=== PATIENT | female | born 1970 | race Caucasian/White ===

== ENCOUNTER → 2016-06-26 | Outpatient (CLI) | payer BC ==
--- NOTE | 2016-06-27 07:41 | MM ---
Reason for exam: follow-up at short interval from prior study. Last mammogram was performed 5 months ago. History: Family history of breast cancer in paternal aunt at age 50. Physical Findings: Nurse did not find any significant physical abnormalities on exam. MG 3D Diag Mammo W/Cad RT CC and MLO view(s) were taken of the right breast. Prior study comparison: January 26, 2016, bilateral MG screening mammo w CAD. January 18, 2015, bilateral MG screening mammo w CAD. The breast tissue is extremely dense which could obscure a lesion on mammography. There is chronic nodularity in the right breast. This finding is changed when compared with previous exams. These results were verbally communicated with the patient and result sheet given to the patient on 06/26/16. ASSESSMENT: Incomplete: need additional imaging evaluation, BI-RAD 0 RECOMMENDATION: Ultrasound of the right breast. Manage patient on a clinical basis.
--- NOTE | 2016-06-27 07:47 | USB ---
Reason for exam: follow-up at short interval from prior study. History: Family history of breast cancer in paternal aunt at age 50. US Breast RT Right breast ultrasound including all four quadrants, the retroareolar region and axilla demonstrates several cystic lesions measuring 1.8 x 1.3 x 0.7cm at 1 o'clock, 0.7 x 0.8 x 0.4cm at 4 o'clock, 0.5 x 0.5 x 0.3cm at 5 o'clock, 0.3 x 0.4 x 0.2cm at 7 o'clock, 0.4 x 0.4 x 0.2cm at 8 o'clock and 2.7 x 2.1 x 1.4cm at 10 o'clock. These results were verbally communicated with the patient and result sheet given to the patient on 06/26/16. ASSESSMENT: Probably benign, BI-RAD 3 RECOMMENDATION: Ultrasound of the right breast in 7 months. Follow-up diagnostic mammogram of both breasts in 7 months.
== END | disposition home or self-care (01) ==
LOC: RADMAMWWP 15:38
PROVIDERS: ATTEND Obstetrics & Gynecology
DX: R92.8 Other abnormal and inconclusive findings on diagnostic imaging of breast (principal)
CPT/HCPCS: 76641; G0206; G0279

== ENCOUNTER → 2017-03-01 | Outpatient (CLI) | payer BC ==
--- NOTE | 2017-03-01 10:55 | MM ---
Reason for exam: follow-up at short interval from prior study. Last mammogram was performed 8 months ago. History: Family history of breast cancer in paternal aunt at age 50. Physical Findings: Nurse Summary: 1cm nodule in the right breast at 12 o'clock and 5 o'clock (nurse mj). MG 3D Diag Mammo W/Cad RUTH Bilateral CC and MLO view(s) were taken. Prior study comparison: June 26, 2016, right breast MG 3d diag mammo w/cad RT. January 26, 2016, bilateral MG screening mammo w CAD. The breast tissue is heterogeneously dense. This may lower the sensitivity of mammography. There are benign appearing wasing and waing masses most compatible with benign cysts. These results were verbally communicated with the patient and result sheet given to the patient on 03/01/17. ASSESSMENT: Benign, BI-RAD 2 RECOMMENDATION: Routine screening mammogram of both breasts in 1 year. (ultrasound of the right breast will be done as follow up and for palpables)
--- NOTE | 2017-03-01 11:01 | USB ---
Reason for exam: follow-up at short interval from prior study. History: Family history of breast cancer in paternal aunt at age 50. US Breast RT Right breast ultrasound includes all four quadrants, the retroareolar region and axilla. Finding demonstrates a 0.6 x 0.4 x 0.6cm cystic lesion at 2 o'clock, a 0.4 x 0.3 x 0.3cm lesion too small to characterize at 5 o'clock cluster appears benign, a 0.6 x 0.4 x 0.6cm mixed lesion at 9 o'clock for which a biopsy is recommended, adjacent to this there is a smaller possible second 2mm mass seen real time imaging, reassess at time of biopsy, a 0.7 x 0.6 x 0.7cm mixed lesion at 10 o'clock, a 0.4 x 0.4 x 0.3cm lesion too small to characterize at 5 o'clock, cluster appears benign and a 0.4 x 0.3 x 0.3cm lesion at 9 o'clock. These results were verbally communicated with the patient and result sheet given to the patient on 03/01/17. ASSESSMENT: Suspicious, BI-RAD 4 RECOMMENDATION: Ultrasound core biopsy of the right breast. (9 o'clock posterior depth) Called Dr. Handy with mammographic findings and has scheduled an appointment for the patient for 03/19/17 at 10:[address] Walsh. Biopsy scheduled for 03/13/17. PRELIMINARY REPORT CALLED AND FAXED TO DR. WALSH ON 03/01/17.
== END | disposition home or self-care (01) ==
LOC: RADMAMWWP 07:28
PROVIDERS: ATTEND Obstetrics & Gynecology
DX: R92.8 Other abnormal and inconclusive findings on diagnostic imaging of breast (principal)
CPT/HCPCS: 76641; G0204; G0279

== ENCOUNTER → 2017-03-13 | Day surgery (SDC) | payer BC ==
[2017-03-13 12:15] VITALS: RESP 16; BMI 22.8
[2017-03-13 13:45] VITALS: BP 111/70; PULSE 78; TEMP 97.3
--- NOTE | 2017-03-13 13:47 | USB ---
EXAMINATION TYPE: US biopsy breast VAD RT DATE OF EXAM: 03/13/2017 CLINICAL HISTORY: R92.8 ABN MAMMO. TECHNIQUE: Ultrasound guided core biopsy of right breast. COMPARISON: NONE FINDINGS: The procedure of ultrasound guided core biopsy was explained to the patient. Benefits, alternatives, and risks were discussed. An informed consent was then obtained. The patient was placed in supine positioning for imaging and for the procedure. The overlying skin was prepped and draped in usual sterile fashion. Lidocaine buffered with bicarbonate was used as anesthetic into the skin and subcutaneous tissue up to area of concern in the right 9:00 breast. A mahesh was made with surgical scalpel. Under ultrasound guidance, a 12-gauge vacuum assisted biopsy gun device was used to obtain 4 core samples. Following this, a biopsy clip was left in lesion. The patient tolerated the procedure well without any immediate complication. The patient was kept in the radiology department for short stay after the procedure and then discharged home in stable condition. IMPRESSION: Successful, uncomplicated ultrasound guided core biopsy of area of concern in the right 9:00 breast, full pathology results to follow. Pathology Results: Benign BREAST, RIGHT, ULTRASOUND GUIDED CORE BIOPSY: FIBROCYSTIC CHANGE (FIBROSIS, CYST FORMATION, ADENOSIS AND DUCT HYPERPLASIA). Recommendation Follow up mammogram of the right breast in 6 months. SIVA
== END ==
LOC: RADUSWWP 11:56
PROVIDERS: ATTEND Surgery
DX: N60.31 Fibrosclerosis of right breast (principal); N60.01 Solitary cyst of right breast; N60.21 Fibroadenosis of right breast; Z88.0 Allergy status to penicillin; Z88.2 Allergy status to sulfonamides
CPT/HCPCS: 88305; 19083; A4648; J2001

== ENCOUNTER → 2018-03-30 | Outpatient (CLI) | payer BC ==
--- NOTE | 2018-04-02 07:45 | MM ---
Reason for exam: screening (asymptomatic). Last mammogram was performed 1 year and 1 month ago. History: Family history of breast cancer in paternal aunt at age 50. Benign US biopsy breast VAD RT of the right breast, March 13, 2017. Physical Findings: A clinical breast exam by your physician is recommended on an annual basis and results should be correlated with mammographic findings. MG 3D Screening Mammo W/Cad Bilateral CC and MLO view(s) were taken. Prior study comparison: March 01, 2017, bilateral MG 3d diag mammo w/cad RUTH. June 26, 2016, right breast MG 3d diag mammo w/cad RT. The breast tissue is heterogeneously dense. This may lower the sensitivity of mammography. There is chronic nodularity bilaterally, smaller than priors on the right. No significant changes when compared with prior studies. ASSESSMENT: Benign, BI-RAD 2 RECOMMENDATION: Routine screening mammogram of both breasts in 1 year.
== END | disposition home or self-care (01) ==
LOC: RADMAMWWP 08:13
PROVIDERS: ATTEND Obstetrics & Gynecology
DX: Z12.31 Encounter for screening mammogram for malignant neoplasm of breast (principal); Z80.3 Family history of malignant neoplasm of breast
CPT/HCPCS: 77063; 77067

== ENCOUNTER → 2018-07-03 | Outpatient (CLI) | payer BC ==
--- NOTE | 2018-07-03 08:21 | US ---
EXAMINATION TYPE: US gallbladder DATE OF EXAM: 07/03/2018 COMPARISON: NONE CLINICAL HISTORY: R10.13 epigastric pain; R19.4 change in bowel habi; patient stated has para umbical area pain after meals; diarrhea; renal stones EXAM MEASUREMENTS: Liver Length: 17.1 cm Gallbladder Wall: 0.2 cm CBD: 0.2 cm Right Kidney: 10.4 x 5.2 x 4.2 cm Pancreas: wnl Liver: texture is wnl, hyperechoic round mass = 0.9 x 0.9 x 0.6cm is seen upper right lobe at IVC an d suggests hemangioma Gallbladder: wnl Evidence for sonographic Mcintosh's sign: no CBD: wnl Right Kidney: wnl MPV: size is greater than13.0mm in 2 of 3 assessments. IMPRESSION: 1. Probable hemangioma which can confirm contrast enhanced CT utilizing hemangioma protocol.
== END | disposition home or self-care (01) ==
LOC: RADUSWWP 06:51
PROVIDERS: ATTEND Family Medicine
DX: R10.13 Epigastric pain (principal); R19.4 Change in bowel habit; Z88.0 Allergy status to penicillin; Z88.2 Allergy status to sulfonamides
CPT/HCPCS: 76705

== ENCOUNTER → 2018-08-15 | Day surgery (SDC) | payer BC ==
[2018-08-13 14:32] VITALS: BMI 20.1
[~2018-08-15] MED LIST: LACTATED RINGERS 1,000 ML IV ONE; LACTATED RINGERS 1,000 ML IV SCH; LIDOCAINE 1% 20 ML VIAL (10MG/ML) FOR IV START INTRADERMA PRN; LIDOCAINE 1% INJ 10MG/ML (20 ML MDV) ONE; MIDAZOLAM 2 MG/2 ML VIAL ONE; PROPOFOL 10 MG/ML 20 ML VIAL IV ONE; fentaNYL (PF) 50 MCG/ML 2 ML AMP ONE
[2018-08-15 12:19] VITALS: RESP 16; TEMP 97.8
--- NOTE | 2018-08-15 14:46 | P.OP ---
Date of Procedure: 08/15/18 Preoperative Diagnosis: GERD Change in Bowel Habits Postoperative Diagnosis: Gastritis Duodenitis Redundant colon Procedure(s) Performed: EGD with Biopsy Colonoscopy Anesthesia: MUMTAZ Surgeon: Shayne Og Pathology: other (Biopsies of duodenum, antrum, esophagus) Condition: stable Disposition: same day Indications for Procedure: 48-year-old female presents with complaints of GERD and change in bowel habits. She is planned to have an elective upper and lower endoscopy. Risks, benefits and alternatives were provided to the patient. The patient did provide consent prior to attending the endoscopy suite. Operative Findings: Gastritis Duodenitis Redundant colon Description of Procedure: The patient was mentating SB suite and placed in left lateral decubitus position and adequate sedation was achieved using conscious sedation. An endoscope was then placed into the oropharynx, into the esophagus and advanced towards the second portion of the duodenum. The scope was then slowly retrieved, evaluating the mucosa of the duodenum. Some inflammatory changes were noted in the duodenum and biopsies were taken. The scope was then retrieved into the antrum of the stomach. 7 from her changes were noted and biopsies were taken. Retroflexed view of the GE junction did reveal a small hiatal hernia. Gastric folds were noted to insufflate appropriately. The scope was then slowly withdrawn into the esophagus. There were some noted inflammatory changes here and biopsies were taken. The stomach was then desufflated and the scope was retrieved. A digital rectal exam was then performed, and internal hemorrhoids were palpated. An endoscope was then placed in the rectum and advanced to the cecum as identified by landmarks, including the appendiceal orifice and ileocecal valve. The prep was good. The colonoscope was then slowly withdrawn, examining for any mucosal abnormalities. The cecum, ascending, transverse, descending and sigmoid colon were visualized adequately. There were no obvious neoplastic lesions noted throughout the colon. There were no polyps noted throughout the colon. There were no significant diverticuli noted throughout the colon. The patient's colon did show signs of redundancy and was noted to be quite floppy. Retroflexion was performed in the rectum and internal hemorrhoids were visible. Excess air was removed. The colonoscope was withdrawn and the procedure terminated. The patient was then transferred to the postanesthesia recovery unit in stable condition. Repeat colonoscopy should be performed in 10 years.
[2018-08-15 15:20] VITALS: BP 104/69; PULSE 90
== END | disposition home or self-care (01) ==
LOC: ORWHC2ENDO 12:06
PROVIDERS: ATTEND Surgery
DX: K29.50 Unspecified chronic gastritis without bleeding (principal); K20.0 Eosinophilic esophagitis; K29.80 Duodenitis without bleeding; K64.8 Other hemorrhoids; Q43.8 Other specified congenital malformations of intestine; Z79.82 Long term (current) use of aspirin; Z79.899 Other long term (current) drug therapy; E78.5 Hyperlipidemia, unspecified; Z88.0 Allergy status to penicillin; Z88.2 Allergy status to sulfonamides; Z91.09 Other allergy status, other than to drugs and biological substances
CPT/HCPCS: 81025; 88305; 45378; 43239; J2250; J2001; J3010; J2704

== ENCOUNTER → 2019-06-06 | Outpatient (CLI) | payer BC ==
--- NOTE | 2019-06-09 13:58 | MM ---
Reason for exam: screening (asymptomatic). Last mammogram was performed 1 year and 2 months ago. History: Family history of breast cancer in paternal aunt at age 50. Benign US biopsy breast VAD RT of the right breast, March 13, 2017. Took hormonal contraceptives for 5 years. Physical Findings: A clinical breast exam by your physician is recommended on an annual basis and results should be correlated with mammographic findings. MG 3D Screening Mammo W/Cad Bilateral CC and MLO view(s) were taken. Prior study comparison: March 30, 2018, bilateral MG 3d screening mammo w/cad. March 01, 2017, bilateral MG 3d diag mammo w/cad RUTH. The breast tissue is heterogeneously dense. This may lower the sensitivity of mammography. There are multiple bilateral round oval circumscribed masses waxing and waning in size compared to priors most mammographically compatible with cysts. No suspicious abnormality. Right biopsy marker noted. ASSESSMENT: Benign, BI-RAD 2 RECOMMENDATION: Routine screening mammogram of both breasts in 1 year.
== END | disposition home or self-care (01) ==
LOC: RADMAMWWP 07:06
PROVIDERS: ATTEND Obstetrics & Gynecology
DX: Z12.31 Encounter for screening mammogram for malignant neoplasm of breast (principal); Z80.3 Family history of malignant neoplasm of breast
CPT/HCPCS: 77063; 77067

== ENCOUNTER → 2021-04-11 | Outpatient (CLI) | payer BC ==
[2021-04-11 15:44] LABS: HCT 41.6 % (37.2-46.3); HGB 12.9 g/dL (12.0-15.0); MCH 29.1 pg (27.0-32.0); MCV 93.9 fL (80.0-97.0); Mean Platelet Volume 12.2 fL (9.5-12.2); Platelet Count 177 X 10*3/uL (140-440); RBC 4.43 X 10*6/uL (4.10-5.20); RDW 12.2 % (11.5-14.5)
[2021-04-11 17:18] LABS: Estradiol <5.0 pg/mL; Testosterone <2.50 ng/mL (7.00-45.62)
== END | disposition home or self-care (01) ==
LOC: LABWHC1 08:57
PROVIDERS: ATTEND Obstetrics & Gynecology
DX: N95.9 Unspecified menopausal and perimenopausal disorder (principal); R53.83 Other fatigue
CPT/HCPCS: 36415; 82306; 82607; 82670; 83001; 84144; 84403; 84439; 84443; 84481; 85027

== ENCOUNTER → 2021-05-12 | Outpatient (CLI) | payer BC ==
--- NOTE | 2021-05-16 09:15 | MM ---
Reason for exam: screening (asymptomatic). Last mammogram was performed 1 year and 11 months ago. History: Family history of breast cancer in paternal aunt at age 50. Benign US biopsy breast VAD RT of the right breast, March 13, 2017. Took hormonal contraceptives for 5 years. Physical Findings: A clinical breast exam by your physician is recommended on an annual basis and results should be correlated with mammographic findings. MG 3D Screening Mammo W/Cad Bilateral CC and MLO view(s) were taken. Prior study comparison: June 06, 2019, bilateral MG 3d screening mammo w/cad. March 30, 2018, bilateral MG 3d screening mammo w/cad. The breast tissue is heterogeneously dense. This may lower the sensitivity of mammography. Previous mammotome biopsy in the right breast. There is chronic nodularity in the left breast. No significant changes when compared with prior studies. ASSESSMENT: Benign, BI-RAD 2 RECOMMENDATION: Routine screening mammogram of both breasts in 1 year.
== END | disposition home or self-care (01) ==
LOC: RADMAMWWP 07:32
PROVIDERS: ATTEND Obstetrics & Gynecology
DX: Z12.31 Encounter for screening mammogram for malignant neoplasm of breast (principal); Z80.3 Family history of malignant neoplasm of breast
CPT/HCPCS: 77063; 77067

== ENCOUNTER 2021-07-04 11:49 | Emergency (ER) | payer BC ==
[2021-07-04 11:56] VITALS: RESP 18; TEMP 98.7
[2021-07-04] MEDS ORDERED: SODIUM CHLORIDE 0.9% 2,000 ML IV STA (12:57)
[2021-07-04] MEDS ORDERED: HYDROmorphone 0.5 MG/0.5 ML SYRINGE IVP STA ×4 (13:04→15:02)
[2021-07-04] MEDS ORDERED: KETOROLAC 15 MG/ML 1 ML VIAL IVP STA ×2 (13:04→13:56)
[2021-07-04] MEDS ORDERED: ONDANSETRON 4 MG/2 ML VIAL IVP STA (13:04)
--- NOTE | 2021-07-04 13:31 | ED ---
Abdominal Pain HPI - General Source: patient, RN notes reviewed Mode of arrival: ambulatory Limitations: no limitations <Adan Alfaro - Last Filed: 07/04/21 13:30> <Ellen Major - Last Filed: 07/05/21 14:50> - General Chief Complaint: Abdominal Pain Stated Complaint: kidney stone Time Seen by Provider: 07/04/21 12:57 - History of Present Illness Initial Comments: This is a 51-year-old female presents emergency department chief complaint of right flank pain. Patient states this onset of pain yesterday. Patient has history of consents. Clinical her prior kidney stones. Patient admits nausea vomiting pain is uncontrolled. She did receive pain meds from her PCP which has not helped. She states that headaches pain feel better worse times wraps around from her right flank to her abdomen. She's had no prior cholecystomy or appendectomy. (Adan Alfaro) - Related Data Home Medications Medication Instructions Recorded Confirmed FLUoxetine HCL [PROzac] 10 mg PO DAILY 07/04/21 07/04/21 Ketorolac [Toradol] 10 mg PO QID PRN 07/04/21 07/04/21 Allergies Allergy/AdvReac Type Severity Reaction Status Date / Time Penicillins Allergy Rash/Hives Verified 07/04/21 13:15 Sulfa (Sulfonamide Allergy Rash/Hives Verified 07/04/21 13:15 Antibiotics) sulfamethoxazole Allergy Rash/Hives Verified 07/04/21 13:15 [From Bactrim] trimethoprim [From Bactrim] Allergy Rash/Hives Verified 07/04/21 13:15 Review of Systems ROS Other: All systems not noted in ROS Statement are negative. <Adan Alfaro - Last Filed: 07/04/21 13:30> ROS Other: All systems not noted in ROS Statement are negative. <Ellen Major - Last Filed: 07/05/21 14:50> ROS Statement: Those systems with pertinent positive or pertinent negative responses have been documented in the HPI. Past Medical History Past Medical History: No Reported History History of Any Multi-Drug Resistant Organisms: None Reported Past Surgical History: No Surgical Hx Reported Past Anesthesia/Blood Transfusion Reactions: Motion Sickness Past Psychological History: No Psychological Hx Reported Smoking Status: Never smoker Past Alcohol Use History: None Reported Past Drug Use History: None Reported - Past Family History Mother Family Medical History: No Reported History <LissAdan woods - Last Filed: 07/04/21 13:30> General Exam Limitations: no limitations General appearance: alert, in no apparent distress Head exam: Present: atraumatic, normocephalic, normal inspection Eye exam: Present: normal appearance, PERRL, EOMI. Absent: scleral icterus, conjunctival injection, periorbital swelling ENT exam: Present: normal exam, normal oropharynx, mucous membranes moist Neck exam: Present: normal inspection, full ROM. Absent: tenderness, meningismus, lymphadenopathy Respiratory exam: Present: normal lung sounds bilaterally. Absent: respiratory distress, wheezes, rales, rhonchi, stridor Cardiovascular Exam: Present: regular rate, normal rhythm, normal heart sounds. Absent: systolic murmur, diastolic murmur, rubs, gallop, clicks GI/Abdominal exam: Present: soft, tenderness, normal bowel sounds. Absent: distended, guarding, rebound, rigid Back exam: Present: CVA tenderness (R) Neurological exam: Present: alert, oriented X3, CN II-XII intact Skin exam: Present: warm, dry, intact, normal color. Absent: rash <LissAdan woods - Last Filed: 07/04/21 13:30> Course Vital Signs 07/04/21 07/04/21 07/04/21 11:54 14:06 16:24 Temperature 98.7 F Pulse Rate 99 116 H 111 H Respiratory 18 18 18 Rate Blood Pressure 128/75 140/85 137/84 O2 Sat by Pulse 99 97 97 Oximetry 07/04/21 20:27 Temperature 98.7 F Pulse Rate 92 Respiratory 18 Rate Blood Pressure 124/70 O2 Sat by Pulse 98 Oximetry Medical Decision Making - Lab Data Result diagrams: 07/04/21 13:06 07/04/21 13:06 <Ellen Major - Last Filed: 07/05/21 14:50> - Medical Decision Making Patient signed out to me awaiting urinalysis. I did review the patient's laboratory studies. She has provided a urine which is negative for any acute infection. Patient does have a 3 mm distal UVJ stone on the right. There is associated severe hydronephrosis. I did discuss results with the patient. She continues to have nausea, vomiting and pain. She has received 2 doses of Toradol, 4 doses of Dilaudid and 1 dose of Zofran. Patient is additionally given a dose of Reglan and Benadryl. As the patient has intractable pain and nausea without ability to drink water I did recommend admission. Spoke with Dr. Fontenot recommends that the patient be made nothing by mouth after midnight. Also like the patient on Flomax. She did take a dose today at home. Flomax is ordered for tomorrow. Patient agreed to this plan and is currently awaiting a bed on the floor (Ellen Major) - Lab Data Lab Results 07/04/21 07/04/21 07/04/21 Range/Units 13:06 13:06 13:06 WBC 11.6 H (3.8-10.6) k/uL RBC 4.45 (3.80-5.40) m/uL Hgb 13.5 (11.4-16.0) gm/dL Hct 39.9 (34.0-46.0) % MCV 89.5 (80.0-100.0) fL MCH 30.2 (25.0-35.0) pg MCHC 33.7 (31.0-37.0) g/dL RDW 12.5 (11.5-15.5) % Plt Count 262 (150-450) k/uL MPV 8.6 Neutrophils % 90 % Lymphocytes % 7 % Monocytes % 2 % Eosinophils % 0 % Basophils % 0 % Neutrophils # 10.4 H (1.3-7.7) k/uL Lymphocytes # 0.8 L (1.0-4.8) k/uL Monocytes # 0.3 (0-1.0) k/uL Eosinophils # 0.0 (0-0.7) k/uL Basophils # 0.0 (0-0.2) k/uL Sodium 134 L (137-145) mmol/L Potassium 4.1 (3.5-5.1) mmol/L Chloride 101 (98-107) mmol/L Carbon Dioxide 22 (22-30) mmol/L Anion Gap 11 mmol/L BUN 10 (7-17) mg/dL Creatinine 0.76 (0.52-1.04) mg/dL Est GFR (CKD-EPI)AfAm >90 (>60 ml/min/1.73 sqM) Est GFR (CKD-EPI)NonAf >90 (>60 ml/min/1.73 sqM) Glucose 124 H (74-99) mg/dL Lactic Ac Sepsis Rflx Plasma Lactic Acid Maged 2.6 H* (0.7-2.0) mmol/L Calcium 9.8 (8.4-10.2) mg/dL Total Bilirubin 0.6 (0.2-1.3) mg/dL AST 27 (14-36) U/L ALT 18 (4-34) U/L Alkaline Phosphatase 113 (38-126) U/L Total Protein 7.6 (6.3-8.2) g/dL Albumin 4.4 (3.5-5.0) g/dL Amylase 59 (30-110) U/L Lipase 63 (23-300) U/L Urine Color Urine Appearance (Clear) Urine pH (5.0-8.0) Ur Specific [place] (1.001-1.035) Urine Protein (Negative) Urine Glucose (UA) (Negative) Urine Ketones (Negative) Urine Blood (Negative) Urine Nitrite (Negative) Urine Bilirubin (Negative) Urine Urobilinogen (<2.0) mg/dL Ur Leukocyte Esterase (Negative) 07/04/21 07/04/21 Range/Units 13:39 16:00 WBC (3.8-10.6) k/uL RBC (3.80-5.40) m/uL Hgb (11.4-16.0) gm/dL Hct (34.0-46.0) % MCV (80.0-100.0) fL MCH (25.0-35.0) pg MCHC (31.0-37.0) g/dL RDW (11.5-15.5) % Plt Count (150-450) k/uL MPV Neutrophils % % Lymphocytes % % Monocytes % % Eosinophils % % Basophils % % Neutrophils # (1.3-7.7) k/uL Lymphocytes # (1.0-4.8) k/uL Monocytes # (0-1.0) k/uL Eosinophils # (0-0.7) k/uL Basophils # (0-0.2) k/uL Sodium (137-145) mmol/L Potassium (3.5-5.1) mmol/L Chloride (98-107) mmol/L Carbon Dioxide (22-30) mmol/L Anion Gap mmol/L BUN (7-17) mg/dL Creatinine (0.52-1.04) mg/dL Est GFR (CKD-EPI)AfAm (>60 ml/min/1.73 sqM) Est GFR (CKD-EPI)NonAf (>60 ml/min/1.73 sqM) Glucose (74-99) mg/dL Lactic Ac Sepsis Rflx Y Plasma Lactic Acid Maged (0.7-2.0) mmol/L Calcium (8.4-10.2) mg/dL Total Bilirubin (0.2-1.3) mg/dL AST (14-36) U/L ALT (4-34) U/L Alkaline Phosphatase (38-126) U/L Total Protein (6.3-8.2) g/dL Albumin (3.5-5.0) g/dL Amylase (30-110) U/L Lipase (23-300) U/L Urine Color Light Yellow Urine Appearance Clear (Clear) Urine pH 7.5 (5.0-8.0) Ur Specific [place] 1.024 (1.001-1.035) Urine Protein Negative (Negative) Urine Glucose (UA) Negative (Negative) Urine Ketones Trace H (Negative) Urine Blood Negative (Negative) Urine Nitrite Negative (Negative) Urine Bilirubin Negative (Negative) Urine Urobilinogen <2.0 (<2.0) mg/dL Ur Leukocyte Esterase Negative (Negative) Disposition <Adan Alfaro - Last Filed: 07/04/21 13:30> Is patient prescribed a controlled substance at d/c from ED?: No Decision to Admit Reason: Admit from EC Decision Date: 07/04/21 Decision Time: 17:12 <Ellen Major - Last Filed: 07/05/21 14:50> Clinical Impression: Ureteral stone with hydronephrosis Disposition: HOME SELF-CARE Condition: Good
[2021-07-04 13:32] LABS: Basophils % (A) 0 %; Eosinophils % (A) 0 %; HCT 39.9 % (34.0-46.0); HGB 13.5 gm/dL (11.4-16.0); Lymphocytes # (A) 0.8 k/uL (1.0-4.8); Lymphocytes % (A) 7 %; MCH 30.2 pg (25.0-35.0); MCHC 33.7 g/dL (31.0-37.0); MCV 89.5 fL (80.0-100.0); Mean Platelet Volume 8.6; Monocytes # (A) 0.3 k/uL (0-1.0); Monocytes % (A) 2 %; Neutrophils # (A) 10.4 k/uL (1.3-7.7); Neutrophils % (A) 90 %; Platelet Count 262 k/uL (150-450); RBC 4.45 m/uL (3.80-5.40); RDW 12.5 % (11.5-15.5); WBC 11.6 k/uL (3.8-10.6)
[2021-07-04 13:41] LABS: ALT 18 U/L (4-34); AST 27 U/L (14-36); African American GFR (CKD) >90 (>60 ml/min/1.73 sqM); Albumin 4.4 g/dL (3.5-5.0); Alkaline Phosphatase 113 U/L (38-126); Amylase 59 U/L (30-110); Anion Gap 11 mmol/L; Blood Urea Nitrogen 10 mg/dL (7-17); Calcium 9.8 mg/dL (8.4-10.2); Carbon Dioxide 22 mmol/L (22-30); Chloride 101 mmol/L (98-107); Glucose 124 mg/dL (74-99); Lipase 63 U/L (23-300); Non-African American GFR(CKD) >90 (>60 ml/min/1.73 sqM); Potassium 4.1 mmol/L (3.5-5.1); Sodium 134 mmol/L (137-145); Total Bilirubin 0.6 mg/dL (0.2-1.3); Total Protein 7.6 g/dL (6.3-8.2)
--- NOTE | 2021-07-04 15:07 | CT ---
EXAMINATION TYPE: CT abdomen pelvis w con DATE OF EXAM: 07/04/2021 COMPARISON: None HISTORY: Right flank pain. CT DLP: 576.1 mGycm Automated exposure control for dose reduction was used. CONTRAST: CT scan of the abdomen pelvis is performed with IV Contrast, patient injected with 100 mL of Isovue 3 00. FINDINGS- Lung bases demonstrate subsegmental changes most typical of atelectasis. Liver and spleen are homogeneous. No gallstones. Pancreas has a normal appearance. Adrenal glands hav e a normal morphology. There is moderate to severe right hydronephrosis and hydroureter to the level of the right UVJ with a suspected 3 mm right ureterovesicular calcification. Additional lower pole 1 mm right renal calculus . Bowel gas pattern nonspecific. No obstruction. Appendix is not seen with certainty. Adnexal cyst on t he left measuring 1.9 cm likely related to ovarian cyst. Aorta of normal caliber. 1 cm area of enhanc ement along the lower uterine segment on the right could represent a small fibroid correlation with u ltrasound recommended. IMPRESSION- 1. Moderate severe right hydronephrosis and hydroureter secondary to a 3 mm right UVJ calcification. Additional 1 mm of lower pole right renal calculi. 2. Appendix is not seen exam nondiagnostic for appendicitis. 3. 1.9 cm suspected left ovarian cyst. 4. 1 cm area of enhancement along the lower uterine segment on the right could represent a small fibr oid correlation with ultrasound recommended
[2021-07-04] MEDS ORDERED: SODIUM CHLORIDE 0.9% 500 ML 500 ML IV ONE (15:29)
[2021-07-04 16:04] LABS: Appearance,Urine Clear (Clear); Bilirubin,Urine Negative (Negative); Blood,Urine Negative (Negative); Color,Urine Light Yellow; Glucose,Urine (UA) Negative (Negative); Ketones,Urine Trace (Negative); Leukocyte Esterase,Urine Negative (Negative); Nitrite,Urine Negative (Negative); PH, Urine 7.5 (5.0-8.0); Protein,Urine Negative (Negative); Specific Gravity,Urine 1.024 (1.001-1.035); Urobilinogen,Urine <2.0 mg/dL (<2.0)
[2021-07-04] MEDS ORDERED: METOCLOPRAMIDE 5 MG/ML 2 ML VIAL IVP STA (16:53)
[2021-07-04] MEDS ORDERED: diphenhydrAMINE 50 MG/ML 1 ML VIAL IVP STA (16:53)
[2021-07-04] MEDS ORDERED: SODIUM CHLORIDE 0.9% 1,000 ML IV SCH (17:15)
[2021-07-04] MEDS ORDERED: NALOXONE 0.4 MG/ML 1 ML VIAL IV PRN (17:15)
[2021-07-04] MEDS ORDERED: HYDROmorphone 0.5 MG/0.5 ML SYRINGE IVP PRN (17:15)
[2021-07-04] MEDS ORDERED: KETOROLAC 15 MG/ML 1 ML VIAL IVP PRN (17:15)
--- NOTE | 2021-07-04 20:12 | ED ---
Medical Decision Making - Medical Decision Making The patient was just admitted for a couple of hours and then apparently changed her mind in regards to admission. She told the nurse that all of her pain was gone and has been gone for multiple hours now. Her nausea has resolved as well. She apparently talked with Dr. Fontenot and he felt as though she would be stable for discharge as well. Dr. Fontenot talk to the nurse and requested that one of the ER physicians discharge the patient home. In addition, there close friend, Dr. Watters, called and he recommends that the patient be discharged home and they can follow-up with him as well. The patient is doing quite well on recheck. She is in no further pain. It is felt as though she may have passed the stone. She would like to be discharged home but she is instructed to return if her symptoms do reoccur. Close follow-up recommended. Admission may be canceled. - Lab Data Result diagrams: 07/04/21 13:06 07/04/21 13:06 Lab Results 07/04/21 07/04/21 07/04/21 Range/Units 13:06 13:06 13:06 WBC 11.6 H (3.8-10.6) k/uL RBC 4.45 (3.80-5.40) m/uL Hgb 13.5 (11.4-16.0) gm/dL Hct 39.9 (34.0-46.0) % MCV 89.5 (80.0-100.0) fL MCH 30.2 (25.0-35.0) pg MCHC 33.7 (31.0-37.0) g/dL RDW 12.5 (11.5-15.5) % Plt Count 262 (150-450) k/uL MPV 8.6 Neutrophils % 90 % Lymphocytes % 7 % Monocytes % 2 % Eosinophils % 0 % Basophils % 0 % Neutrophils # 10.4 H (1.3-7.7) k/uL Lymphocytes # 0.8 L (1.0-4.8) k/uL Monocytes # 0.3 (0-1.0) k/uL Eosinophils # 0.0 (0-0.7) k/uL Basophils # 0.0 (0-0.2) k/uL Sodium 134 L (137-145) mmol/L Potassium 4.1 (3.5-5.1) mmol/L Chloride 101 (98-107) mmol/L Carbon Dioxide 22 (22-30) mmol/L Anion Gap 11 mmol/L BUN 10 (7-17) mg/dL Creatinine 0.76 (0.52-1.04) mg/dL Est GFR (CKD-EPI)AfAm >90 (>60 ml/min/1.73 sqM) Est GFR (CKD-EPI)NonAf >90 (>60 ml/min/1.73 sqM) Glucose 124 H (74-99) mg/dL Lactic Ac Sepsis Rflx Plasma Lactic Acid Maged 2.6 H* (0.7-2.0) mmol/L Calcium 9.8 (8.4-10.2) mg/dL Total Bilirubin 0.6 (0.2-1.3) mg/dL AST 27 (14-36) U/L ALT 18 (4-34) U/L Alkaline Phosphatase 113 (38-126) U/L Total Protein 7.6 (6.3-8.2) g/dL Albumin 4.4 (3.5-5.0) g/dL Amylase 59 (30-110) U/L Lipase 63 (23-300) U/L Urine Color Urine Appearance (Clear) Urine pH (5.0-8.0) Ur Specific [place] (1.001-1.035) Urine Protein (Negative) Urine Glucose (UA) (Negative) Urine Ketones (Negative) Urine Blood (Negative) Urine Nitrite (Negative) Urine Bilirubin (Negative) Urine Urobilinogen (<2.0) mg/dL Ur Leukocyte Esterase (Negative) 07/04/21 07/04/21 Range/Units 13:39 16:00 WBC (3.8-10.6) k/uL RBC (3.80-5.40) m/uL Hgb (11.4-16.0) gm/dL Hct (34.0-46.0) % MCV (80.0-100.0) fL MCH (25.0-35.0) pg MCHC (31.0-37.0) g/dL RDW (11.5-15.5) % Plt Count (150-450) k/uL MPV Neutrophils % % Lymphocytes % % Monocytes % % Eosinophils % % Basophils % % Neutrophils # (1.3-7.7) k/uL Lymphocytes # (1.0-4.8) k/uL Monocytes # (0-1.0) k/uL Eosinophils # (0-0.7) k/uL Basophils # (0-0.2) k/uL Sodium (137-145) mmol/L Potassium (3.5-5.1) mmol/L Chloride (98-107) mmol/L Carbon Dioxide (22-30) mmol/L Anion Gap mmol/L BUN (7-17) mg/dL Creatinine (0.52-1.04) mg/dL Est GFR (CKD-EPI)AfAm (>60 ml/min/1.73 sqM) Est GFR (CKD-EPI)NonAf (>60 ml/min/1.73 sqM) Glucose (74-99) mg/dL Lactic Ac Sepsis Rflx Y Plasma Lactic Acid Maged (0.7-2.0) mmol/L Calcium (8.4-10.2) mg/dL Total Bilirubin (0.2-1.3) mg/dL AST (14-36) U/L ALT (4-34) U/L Alkaline Phosphatase (38-126) U/L Total Protein (6.3-8.2) g/dL Albumin (3.5-5.0) g/dL Amylase (30-110) U/L Lipase (23-300) U/L Urine Color Light Yellow Urine Appearance Clear (Clear) Urine pH 7.5 (5.0-8.0) Ur Specific [place] 1.024 (1.001-1.035) Urine Protein Negative (Negative) Urine Glucose (UA) Negative (Negative) Urine Ketones Trace H (Negative) Urine Blood Negative (Negative) Urine Nitrite Negative (Negative) Urine Bilirubin Negative (Negative) Urine Urobilinogen <2.0 (<2.0) mg/dL Ur Leukocyte Esterase Negative (Negative) Disposition Clinical Impression: Ureteral stone with hydronephrosis Disposition: ADMITTED IP TO THIS [facility] Condition: Good Is patient prescribed a controlled substance at d/c from ED?: No Time of Disposition: 20:10
[2021-07-04] MEDS ORDERED: ONDANSETRON 4 MG ODT STARTER PACK 2 TAB BTL PO STA (20:19)
[2021-07-04 20:28] VITALS: BP 124/70; PULSE 92
[2021-07-05] MEDS ORDERED: TAMSULOSIN 0.4 MG CAP.ER.24H PO SCH (08:30)
== END 2021-07-04 20:28 | disposition home or self-care (01) ==
LOC: EC 11:49 → UNDOADMOB 17:17 → 6NMEDSUR 17:17 → UNDODISOB 20:12
DX: N13.2 Hydronephrosis with renal and ureteral calculous obstruction (principal)
CPT/HCPCS: 36415; 80053; 82150; 83605; 83690; 85025; 81003; 74177; 99284; 96374; 96375 ×4; 96376 ×3; 96361 ×2; J1200; J2765; J2405; J1885; S0119; J1170; Q9967

== ENCOUNTER → 2021-08-18 | Outpatient (CLI) | payer BC ==
--- NOTE | 2021-08-18 10:22 | US ---
EXAMINATION TYPE: US kidneys/renal and bladder DATE OF EXAM: 08/18/2021 COMPARISON: CT 2021 CLINICAL HISTORY: N13.2 HYDRONEPHROSIS WITH RENAL AND URETERAL CALCULI. Follow up kidney stone EXAM MEASUREMENTS: Right Kidney: 9.9 x 4.4 x 5.3 cm Left Kidney: 10.0 x 5.0 x 4.1 cm Right Kidney: fullness of renal pelvis Left Kidney: wnl Bladder: wnl Bilateral Jets seen: yes Mild to moderate right-sided hydronephrosis remains present though less prominent versus recent CT. No nephrolithiasis is seen. No masses are identified on images saved. The urinary bladder is adequa tely distended. Bilateral ureteral jets are seen. IMPRESSION: Interval successful treatment or more likely successful passage of the obstructing small distal right ureter calculus. There is persistent mild right-sided hydronephrosis noted but the dista l right ureter jet is appreciated.
== END | disposition home or self-care (01) ==
LOC: RADUSWWP 09:38
PROVIDERS: ATTEND Urology
DX: N13.2 Hydronephrosis with renal and ureteral calculous obstruction (principal)
CPT/HCPCS: 76770

== ENCOUNTER → 2021-09-22 | Outpatient (CLI) | payer BC ==
--- NOTE | 2021-09-22 16:37 | US ---
EXAMINATION TYPE: US kidneys/renal and bladder DATE OF EXAM: 09/22/2021 COMPARISON: US 2021 CLINICAL HISTORY: HYDRONEPHROSIS WITH RENAL. Hydronephrosis follow up EXAM MEASUREMENTS: Right Kidney: 10.4 x 4.2 x 4.9 cm Left Kidney: 9.9 x 5.9 x 3.5 cm Right Kidney: No hydronephrosis or masses seen Left Kidney: No hydronephrosis or masses seen Bladder: wnl Bilateral Jets seen: yes IMPRESSION: 1. No hydronephrosis. Previous mild right hydronephrosis appears resolved.
== END | disposition home or self-care (01) ==
LOC: RADUSWWP 15:31
PROVIDERS: ATTEND Urology
DX: N13.30 Unspecified hydronephrosis (principal)
CPT/HCPCS: 76770

== ENCOUNTER → 2022-09-05 | Outpatient (CLI) | payer BC ==
[2022-09-05 20:20] LABS: Basophils # (A) 0.07 X 10*3/uL (0.00-0.10); Basophils % (A) 0.9 %; Eosinophils # (A) 0.13 X 10*3/uL (0.04-0.35); Eosinophils % (A) 1.7 %; HCT 44.2 % (37.2-46.3); Immature Grans, Automated 0.3 %; Lymphocytes # (A) 2.89 X 10*3/uL (0.90-5.00); Lymphocytes % (A) 37.5 %; MCH 28.4 pg (27.0-32.0); MCHC 31.7 g/dL (32.0-37.0); MCV 89.7 fL (80.0-97.0); Mean Platelet Volume 12.1 fL (9.5-12.2); Monocytes # (A) 0.54 X 10*3/uL (0.20-1.00); NRBC Per 100 WBC 0 /100 WBCS (0.0-0.0); Neutrophils # (A) 4.06 X 10*3/uL (1.80-7.70); Neutrophils % (A) 52.6 %; Platelet Count 239 X 10*3/uL (140-440); RBC 4.93 X 10*6/uL (4.10-5.20); RDW 12.5 % (11.5-14.5); WBC 7.71 X 10*3/uL (4.50-10.00)
[2022-09-05 21:00] LABS: Erythrocyte Sedimentation Rate 16 mm/Hr (0-30)
--- NOTE | 2022-09-07 08:56 | XR ---
EXAMINATION TYPE: XR hand complete bilateral DATE OF EXAM: 09/05/2022 COMPARISON: NONE HISTORY: 52-year-old female [id number], right hand pain and weakness. TECHNIQUE: 3 views each side FINDINGS: On both sides, there is mild, early osteoarthritic change at the first CMC joint. Also on both sides, there is cystic change along the ulnar proximal aspect of the lunate bone though larger on the right . No marginal erosions or soft tissue calcifications are seen. No acute fracture, subluxation, or dis location. IMPRESSION: 1. 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 However, the changes are great er on the right. 2. Mild early osteoarthritic change at the base of the thumbs.
== END | disposition home or self-care (01) ==
LOC: LABWHC1 15:29
PROVIDERS: ATTEND Family Medicine
DX: M79.641 Pain in right hand (principal); R29.898 Other symptoms and signs involving the musculoskeletal system
CPT/HCPCS: 36415; 85025; 85652; 86038; 86140; 86162

== ENCOUNTER → 2022-10-04 | Outpatient (CLI) | payer BC ==
--- NOTE | 2022-10-05 20:16 | MM ---
Reason for Exam: Screening (asymptomatic). Last mammogram was performed 1 year(s) and 5 month(s) ago. Patient History: Menarche at age 11. First Full-Term at age 21. Postmenopausal. Currently using Progesterone, starting at age 52. Patient used Hormonal Contraceptives for 5 years. 03/13/2017, Benign Core Biopsy on the right side. Paternal aunt had breast cancer, age 50. Risk Values: Felicity 5 year model risk: 1.2%. NCI Lifetime model risk: 8.8%. Prior Study Comparison: 01/18/2015 Bilateral Screening Mammogram, [facility]. 01/26/2016 Bilateral Screening Mammogram, [facility]. 06/26/2016 Right Diagnostic Mammogram, [facility]. 03/01/2017 Bilateral Diagnostic Mammogram, [facility]. 03/30/2018 Bilateral Screening Mammogram, [facility]. 06/06/2019 Bilateral Screening Mammogram, [facility]. 05/12/2021 Bilateral Screening Mammogram, [facility]. Tissue Density: The breast tissue is heterogeneously dense. This may lower the sensitivity of mammography. Findings: Analyzed By CAD. Bilateral chronic low density nodularity which becomes apparent on 3-D images. Areas of asymmetric density are unchanged. There is no suspicious group of microcalcifications or new suspicious mass in either breast. Overall Assessment: Benign, BI-RAD 2 Management: Screening Mammogram of both breasts in 1 year. . Patient should continue monthly self-breast exams. A clinical breast exam by your physician is recommended on an annual basis. This exam should not preclude additional follow-up of suspicious palpable abnormalities. Note on Felicity scores and lifetime risk: 1. A Felicity score greater than 3% is considered moderate risk. If this is the case, consider specialist referral to assess eligibility for a risk reducing agent. 2. If overall lifetime risk for the development of breast cancer is 20% or higher, the patient may qualify for future screening with alternating mammogram and breast MRI. Electronically signed and approved by: Félix Soler M.D. Radiologist
== END | disposition home or self-care (01) ==
LOC: RADMAMWWP 07:27
PROVIDERS: ATTEND Obstetrics & Gynecology
DX: Z12.31 Encounter for screening mammogram for malignant neoplasm of breast (principal); Z78.0 Asymptomatic menopausal state; Z80.3 Family history of malignant neoplasm of breast
CPT/HCPCS: 77063; 77067

== ENCOUNTER → 2023-10-12 | Outpatient (CLI) | payer BC ==
--- NOTE | 2023-10-15 18:32 | MM ---
Reason for Exam: Screening (asymptomatic). Last screening mammogram was performed 12 month(s) ago. Patient History: Menarche at age 11. First Full-Term at age 21. Postmenopausal. Currently using Progesterone, starting at age 52. Patient used Hormonal Contraceptives for 5 years. 03/13/2017, Benign Core Biopsy on the right side. Paternal aunt had breast cancer, age 50. Paternal aunt had breast cancer. Risk Values: Felicity 5 year model risk: 1.2%. NCI Lifetime model risk: 8.7%. Prior Study Comparison: 06/06/2019 Bilateral Screening Mammogram, [facility]. 05/12/2021 Bilateral Screening Mammogram, [facility]. 10/04/2022 Bilateral MG 3D screening mammo w/cad, [facility]. Tissue Density: The breasts are heterogeneously dense, which may obscure small masses. Findings: Analyzed By CAD. Microclip right breast from prior biopsy. Areas of asymmetric density are unchanged. There is no suspicious group of microcalcifications or new suspicious mass in either breast. Overall Assessment: Benign, BI-RAD 2 Management: Screening Mammogram of both breasts in 1 year. . Patient should continue monthly self-breast exams. A clinical breast exam by your physician is recommended on an annual basis. This exam should not preclude additional follow-up of suspicious palpable abnormalities. Note on Felicity scores and lifetime risk: 1. A Felicity score greater than 3% is considered moderate risk. If this is the case, consider specialist referral to assess eligibility for a risk reducing agent. 2. If overall lifetime risk for the development of breast cancer is 20% or higher, the patient may qualify for future screening with alternating mammogram and breast MRI. Electronically signed and approved by: Félix Soler M.D. Radiologist
== END | disposition home or self-care (01) ==
LOC: RADMAMWWP 07:23
PROVIDERS: ATTEND Obstetrics & Gynecology
DX: Z12.31 Encounter for screening mammogram for malignant neoplasm of breast (principal); Z78.0 Asymptomatic menopausal state; Z80.3 Family history of malignant neoplasm of breast
CPT/HCPCS: 77063; 77067